=== PATIENT | male | born 1980 | race Caucasian/White ===

== ENCOUNTER 2022-11-09 11:33 | Emergency (ER) | payer MEDICAID ==
[~2022-11-09] VITALS: Ht 170.2 cm; Wt 76.0 kg
[2022-11-09] MEDS ORDERED: LIDOCAINE HCL/PF 1% 10 MG/ML 5ML VIAL INFIL ONE (12:00)
[2022-11-09] MEDS ORDERED: CEFTRIAXONE SODIUM 500 MG/VIAL IM ONE (12:00)
[2022-11-09] MEDS ORDERED: DOXYCYCLINE HYCLATE 100MG CAPSULE PO ONE (12:00)
[2022-11-09 12:17] LABS: BASOPHILS % 0.9 % (0.0-2.0); EOSINOPHILS % 2.8 % (0.0-5.0); HEMATOCRIT. 37.8 % (42.0-52.0); HEMOGLOBIN. 13.3 g/dL (14.0-18.0); LYMPHOCYTES % 27.8 % (20.0-50.0); MEAN CORPUSCULAR HEMOGLOBIN 33.8 pg (28.0-32.0); MEAN CORPUSCULAR VOLUME 96.4 fL (80.0-94.0); MEAN PLATELET VOLUME 7.9 fl (7.4-10.4); MONOCYTES % 6.8 % (2.0-8.0); NEUTROPHILS % 61.7 % (40.0-76.0); PLATELET 279 x1000/uL (130-400); RED BLOOD CELL COUNT 3.92 mill/uL (4.7-6.1); RED CELL DISTRIBUTION WIDTH 13.1 % (11.6-14.6)
[2022-11-09 12:24] LABS: CHLORIDE 110 mEq/L (98-107)
[2022-11-09 13:22] LABS: CLARITY URINE CLEAR (CLEAR); COLOR URINE YELLOW (YELLOW); KETONES URINE TRACE (NEGATIVE); LEUKOCYTE ESTERASE URINE NEGATIVE (NEGATIVE); NITRITE URINE NEGATIVE (NEGATIVE); OCCULT BLOOD URINE NEGATIVE (NEGATIVE); PH URINE 7.5 (4.5-8.0); PROTEIN URINE NEGATIVE (NEGATIVE); SPECIFIC GRAVITY URINE 1.021 (1.005-1.030)
[2022-11-09] MEDS ORDERED: DOXY100T2 MT (14:15)
[2022-11-09 15:39] VITALS: BP 133/90
[2022-11-13 09:08] LABS: NEISSERIA GONORRHOEAE NAA Negative (Negative)
== END 2022-11-09 15:40 | disposition home or self-care (01) ==
LOC: ER 11:33
DX: Z20.2 Contact with and (suspected) exposure to infections with a predominantly sexual mode of transmission (principal); D64.9 Anemia, unspecified; Z76.89 Persons encountering health services in other specified circumstances
CPT/HCPCS: 36415; 80053; 81003; 85025; 86592; 87491; 87591; 96372; 99283; J0696; J3490; Z7610; 94664